=== PATIENT | male | born 1950 | race Caucasian/White ===

== ENCOUNTER 2018-12-01 20:06 | Observation (INO) | payer OTHER ==
[2018-12-01] MEDS ORDERED: Sodium Chloride 0.9% 1,000 ML IV ONE (20:32)
[2018-12-01] MEDS ORDERED: Nitroglycerin 2% Ointment Foilpak UD TOP STA (20:33)
--- NOTE | 2018-12-01 20:34 | C.PDOC ---
History Of Present Illness 68 year old male presents with intermittent chest pain since this morning described as a heaviness to the left chest area. Patient has a Hx of cardiac problems in the past with bypass and stents done in [place] years ago. Denies SOB, fever, or chills. Chief Complaint (Nursing): Chest Pain History Per: Patient History/Exam Limitations: no limitations Onset/Duration Of Symptoms: Days Current Symptoms Are (Timing): Still Present Quality: Other (Heaviness) Modifying Factors: None Exacerbating Factors: None Alleviating Factors: None Recent travel outside of the [place]: No Past Medical History Reviewed: Historical Data, Nursing Documentation, Vital Signs Vital Signs: Last Vital Signs Temp 98.2 F 12/01/18 20:24 Pulse 58 L 12/01/18 20:22 Resp 15 12/01/18 20:22 BP 191/78 H 12/01/18 20:22 Pulse Ox 97 12/01/18 20:22 - Medical History PMH: HTN, Hypercholesterolemia Family History: States: No Known Family Hx - Social History Hx Alcohol Use: No Hx Substance Use: No - Immunization History Hx Tetanus Toxoid Vaccination: No Hx Influenza Vaccination: No Hx Pneumococcal Vaccination: No Review Of Systems Constitutional: Negative for: Fever, Chills Cardiovascular: Positive for: Chest Pain Respiratory: Negative for: Cough, Shortness of Breath Gastrointestinal: Negative for: Nausea, Vomiting, Abdominal Pain Neurological: Negative for: Weakness, Numbness Physical Exam - Physical Exam Appears: Non-toxic, No Acute Distress Skin: Normal Color, Warm, Dry Head: Atraumatic, Normacephalic Eye(s): bilateral: Normal Inspection Oral Mucosa: Moist Neck: Normal, Supple Chest: Symmetrical, No Tenderness Cardiovascular: Rhythm Regular Respiratory: Normal Breath Sounds, No Rales, No Rhonchi, No Wheezing Gastrointestinal/Abdominal: Soft, No Tenderness Neurological/Psych: Oriented x3, Normal Speech ED Course And Treatment - Laboratory Results Result Diagrams: 12/01/18 20:58 12/01/18 20:58 ECG: Interpreted By Me, Viewed By Me ECG Rhythm: Sinus Bradycardia, Nonspecific Changes ECG Interpretation: No Acute Changes, Abnormal Interpretation Of ECG: Sinus bradycardia, non spc. t chnges, abnormal tracings Rate From EC O2 Sat by Pulse Oximetry: 97 (Room air) Pulse Ox Interpretation: Normal - Radiology CXR: Interpreted by Me, Viewed By Me CXR Interpretation: Yes: No Acute Disease, Other (increased bronchovascula rmarkings). No: Infiltrates, Pnemothorax Progress Note: EKG, blood work, and CXR ordered. Aspirin, IV fluids, and toradol administered. Nitro-bid applied. Repeat EKG shows no significant change. Disposition Discussed With : Fernando Quigley Doctor Will See Patient In The: Hospital Counseled Patient/Family Regarding: Diagnosis - Disposition Disposition: HOSPITALIZED Disposition Time: 21:51 Condition: STABLE - POA Present On Arrival: None - Clinical Impression Clinical Impression: Chest pain, Coronary artery disease, Hyperlipidemia, Hypertension - Scribe Statement The provider has reviewed the documentation as recorded by the Scribe Orlando Davila All medical record entries made by the Scribe were at my direction and personally dictated by me. I have reviewed the chart and agree that the record accurately reflects my personal performance of the history, physical exam, medical decision making, and the department course for this patient. I have also personally directed, reviewed, and agree with the discharge instructions and disposition.
--- NOTE | 2018-12-01 20:34 | C.PDOC ---
Chief Complaint (Nursing): Chest Pain Past Medical History Vital Signs: Last Vital Signs Temp 98.2 F 12/01/18 20:24 Pulse 58 L 12/01/18 20:22 Resp 15 12/01/18 20:22 BP 191/78 H 12/01/18 20:22 Pulse Ox 97 12/01/18 20:22 - Medical History PMH: HTN, Hypercholesterolemia - Social History Hx Alcohol Use: No Hx Substance Use: No - Immunization History Hx Tetanus Toxoid Vaccination: No Hx Influenza Vaccination: No Hx Pneumococcal Vaccination: No ED Course And Treatment O2 Sat by Pulse Oximetry: 97 Disposition - Disposition
[2018-12-01] MEDS ORDERED: Nitroglycerin 2% Ointment Foilpak UD TOP ONE (20:42)
[2018-12-01 21:03] LABS: BASO % 0.7 % (0.0-2.0); EOS # 0.2 K/uL (0.0-0.7); EOS % 3.6 % (0.0-4.0); HEMOGLOBIN 14.3 g/dL (12.0-18.0); LYMPH # 1.5 K/uL (1.0-4.3); LYMPH % 28.3 % (20.0-40.0); MEAN CELL VOLUME 88.6 fL (80.0-94.0); MEAN CORPUSCULAR HEMOGLOBIN 29.3 pg (27.0-31.0); MEAN CORPUSCULAR HGB CONC 33.1 g/dL (33.0-37.0); MEAN PLATELET VOLUME 8.4 fL (7.2-11.7); MONO # 0.6 K/uL (0.0-0.8); MONO % 10.1 % (0.0-10.0); NEUT # 3.1 K/uL (1.8-7.0); NEUT % 57.3 % (50.0-75.0); NRBC % 0.1 % (0.0-2.0); RBC 4.88 Mil/uL (4.40-5.90); RED CELL DISTRIBUTION WIDTH 12.8 % (11.5-14.5); WHITE BLOOD COUNT 5.5 K/uL (4.8-10.8)
[2018-12-01 21:17] LABS: ALB/GLOB RATIO 1.6 (1.0-2.1); ALBUMIN 4.4 g/dL (3.5-5.0); ALT/SGPT 26 U/L (21-72); AST/SGOT 29 U/L (17-59); BLOOD UREA NITROGEN 14 mg/dL (9-20); GFR NON-AFRICAN AMERICAN > 60
[2018-12-01 21:19] LABS: INR 1.1; PARTIAL THROMBOPLASTIN TIME 43 SECONDS (21-34); PROTHROMBIN TIME 12.3 SECONDS (9.7-12.2)
[2018-12-01 21:29] LABS: D DIMER < 200 ng/mlDDU (0-243)
[2018-12-01] MEDS: Enoxaparin 150 mg Syringe SC SCH (22:43)
[2018-12-01] MEDS ORDERED: Potassium Chloride 20 mEq ER Tab PO STA (22:47)
[2018-12-01] MEDS ORDERED: Enoxaparin 30 mg Syringe ONE (22:50)
[2018-12-01] MEDS ORDERED: Potassium Chloride 20 mEq ER Tab PO ONE (22:51)
[2018-12-02] MEDS: Nitroglycerin 2% Ointment Foilpak UD TOP SCH ×4 (00:55→18:00)
[2018-12-02 01:45] VITALS: RESP 20
[2018-12-02 06:42] LABS: CK-MB 1.36 ng/mL (0.0-3.38)
--- NOTE | 2018-12-02 09:14 | RAD ---
HISTORY: chest pain COMPARISON: None available. TECHNIQUE: Chest PA and lateral FINDINGS: LUNGS: Right hilar prominence. Left lower lobe atelectasis/pneumonia. Mild pulmonary venous congestion. Please note that chest x-ray has limited sensitivity for the detection of pulmonary masses. PLEURA: No significant pleural effusion identified. No definite pneumothorax . CARDIOVASCULAR: Heart size appears within normal limits. Aortic ectasia. OSSEOUS STRUCTURES: No acute osseous abnormality identified. VISUALIZED UPPER ABDOMEN: Unremarkable. OTHER FINDINGS: None. IMPRESSION: Right hilar prominence. Left lower lobe atelectasis/pneumonia. Mild pulmonary venous congestion.
[2018-12-02] MEDS ORDERED: Home Med 1 UNIT (Losartan/Hydrochlorothiazide [Losartan-Hctz 50-12.5 Mg Tab] 1 EACH) PO SCH (10:00)
[2018-12-02] MEDS: Potassium Chloride 20 mEq ER Tab PO SCH (10:02)
[2018-12-02] MEDS: Aspirin 325 mg EC Tablets PO SCH (10:03)
[2018-12-02] MEDS: Enoxaparin 150 mg Syringe SC SCH ×2 (10:05→21:45)
--- NOTE | 2018-12-02 10:32 | CP.PCM.HP ---
History of Present Illness - History of Present Illness History of Present Illness: 68 year old male presents with intermittent chest pain since this morning described as a heaviness to the left chest area. Patient has a Hx of cardiac problems in the past with bypass and stents done in [place] years ago FIRST SET OF CARDIAC TNI IS NEG NO ACUTE CHANGES IN EKG Present on Admission - Present on Admission Any Indicators Present on Admission: No Review of Systems - Review of Systems All systems: reviewed and no additional remarkable complaints except (CP) Past Patient History - Infectious Disease Hx of Infectious Diseases: None - Past Social History Smoking Status: Never Smoked - CARDIAC Hx Hypercholesterolemia: Yes Hx Hypertension: Yes - PSYCHIATRIC Hx Substance Use: No - SURGICAL HISTORY Hx Surgeries: Yes Hx Angioplasty: Yes (2 stents) - ANESTHESIA Hx Anesthesia: Yes Meds Allergies/Adverse Reactions: Allergies Allergy/AdvReac Type Severity Reaction Status Date / Time No Known Allergies Allergy Verified 12/01/18 20:21 Physical Exam - Head Exam Head Exam: ATRAUMATIC, NORMAL INSPECTION, NORMOCEPHALIC - Eye Exam Eye Exam: EOMI, Normal appearance, PERRL - ENT Exam ENT Exam: Mucous Membranes Moist, Normal Exam - Neck Exam Neck exam: Positive for: Normal Inspection - Respiratory Exam Respiratory Exam: Clear to Auscultation Bilateral, NORMAL BREATHING PATTERN - Cardiovascular Exam Cardiovascular Exam: REGULAR RHYTHM - GI/Abdominal Exam GI & Abdominal Exam: Normal Bowel Sounds, Soft. absent: Tenderness - Extremities Exam Extremities exam: Positive for: normal inspection - Back Exam Back exam: NORMAL INSPECTION - Neurological Exam Neurological exam: Alert, CN II-XII Intact, Normal Gait, Oriented x3, Reflexes Normal Results - Vital Signs Recent Vital Signs: Last Vital Signs Temp 97.5 F L 12/02/18 07:00 Pulse 54 L 12/02/18 08:31 Resp 20 12/02/18 07:00 BP 152/54 H 12/02/18 10:06 Pulse Ox 98 12/02/18 08:31 - Labs Result Diagrams: 12/01/18 20:58 12/01/18 20:58 Labs: Laboratory Results - last 24 hr 12/01/18 12/01/18 12/01/18 20:58 20:58 20:58 WBC 5.5 RBC 4.88 Hgb 14.3 Hct 43.3 MCV 88.6 MCH 29.3 MCHC 33.1 RDW 12.8 Plt Count 177 MPV 8.4 Neut % (Auto) 57.3 Lymph % (Auto) 28.3 [place] % (Auto) 10.1 H Eos % (Auto) 3.6 Baso % (Auto) 0.7 Neut # (Auto) 3.1 Lymph # (Auto) 1.5 [place] # (Auto) 0.6 Eos # (Auto) 0.2 Baso # (Auto) 0.0 PT 12.3 H INR 1.1 APTT 43 H D-Dimer, Quantitative < 200 Sodium 132 Potassium 3.5 L Chloride 97 L Carbon Dioxide 26 Anion Gap 13 BUN 14 Creatinine 0.8 Est GFR ( Amer) > 60 Est GFR (Non-Af Amer) > 60 Random Glucose 105 Calcium 9.0 Total Bilirubin 1.0 AST 29 ALT 26 Alkaline Phosphatase 42 Total Creatine Kinase CK-MB (Mass) Troponin I < 0.0120 Total Protein 7.3 Albumin 4.4 Globulin 2.9 Albumin/Globulin Ratio 1.6 12/02/18 06:02 WBC RBC Hgb Hct MCV MCH MCHC RDW Plt Count MPV Neut % (Auto) Lymph % (Auto) [place] % (Auto) Eos % (Auto) Baso % (Auto) Neut # (Auto) Lymph # (Auto) [place] # (Auto) Eos # (Auto) Baso # (Auto) PT INR APTT D-Dimer, Quantitative Sodium Potassium Chloride Carbon Dioxide Anion Gap BUN Creatinine Est GFR ( Amer) Est GFR (Non-Af Amer) Random Glucose Calcium Total Bilirubin AST ALT Alkaline Phosphatase Total Creatine Kinase 107 CK-MB (Mass) 1.36 Troponin I < 0.0120 Total Protein Albumin Globulin Albumin/Globulin Ratio Assessment & Plan (1) Chest pain Status: Acute (2) Coronary artery disease Status: Acute (3) Hyperlipidemia Status: Acute (4) Hypertension Status: Acute
[2018-12-02 14:30] LABS: CK-MB 1.28 ng/mL (0.0-3.38)
[2018-12-03] MEDS: Nitroglycerin 2% Ointment Foilpak UD TOP SCH ×3 (00:26→11:31)
--- NOTE | 2018-12-03 08:02 | CARD ---
APPROVED REPORT Date of service: 12/01/2018 EKG Measurement Heart [id number] <Conclusion> Sinus bradycardia Left axis deviation Inferior infarct, age undetermined Abnormal ECG
[2018-12-03 08:08] LABS: BLOOD UREA NITROGEN 15 mg/dL (9-20); CALCIUM 8.6 mg/dl (8.6-10.4); GFR NON-AFRICAN AMERICAN > 60
--- NOTE | 2018-12-03 09:04 | CARD ---
APPROVED REPORT Date of service: 12/02/2018 EXAM: Two-dimensional and M-mode echocardiogram with Doppler and color Doppler. Other Information Quality : TDSRhythm : INDICATION Cardiac Disease: CAD Chest Pain RISK FACTORS Hypertension Hyperlipidemia 2D DIMENSIONS IVSd1.0 (0.7-1.1cm)LVDd4.7 (3.9-5.9cm) PWd0.8 (0.7-1.1cm)LA [id number] (18-58mL) LVDs2.5 (2.5-4.0cm)FS (%) 46.5 % LVEF (%)77.8 (>50%)LVEF (Concepcion's)61.09 % M-Mode DIMENSIONS Left Atrium (MM)3.93 (2.5-4.0cm)IVSd0.80 (0.7-1.1cm) Aortic Root3.31 (2.2-3.7cm)LVDd4.98 (4.0-5.6cm) Aortic Cusp Exc.1.57 (1.5-2.0cm)PWd0.58 (0.7-1.1cm) FS (%) 45 %LVDs2.75 (2.0-3.8cm) LVEF (%)76 (>50%) Mitral Valve MV E Jpjgqjfd52.2cm/sMV A Kbreowwx39.7cm/sE/A ratio1.0 TDI Lateral E' Peak V5.00cm/sMedial E' Peak V4.80cm/sE/Lateral E'18.2 E/Medial E'19.0 Tricuspid Valve TR Peak [id number]/sTR Peak Gr.[id number] <Conclusion> Suboptimal study Left ventricle: thickness: normal; size: normal; overall ejection fraction: 65%: diastolic filling pressures: elevated Mitral valve: annulus: normal: leaflets: normal: excursion: normal; no significant trans-mitral gradient: no significant incompetence: left atrium: normal Aortic valve: leaflets: normal: excursion: normal; no significant trans-aortic gradient: No significant incompetence: aortic root: normal Right sided Structures: Pulmonary valve: normal; no significant incompetence; Tricuspid valve: normal; no significant incompetence: Intra-cardiac hemodynamics: pulmonary systolic pressures: 32 mmHg; central venous pressures: normal No pericardial effusion
[2018-12-03 09:08] VITALS: BP 134/79; TEMP 97.4; O2SAT 96
[2018-12-03] MEDS: Aspirin 325 mg EC Tablets PO SCH (09:52)
[2018-12-03] MEDS: Potassium Chloride 20 mEq ER Tab PO SCH (09:52)
[2018-12-03] MEDS: Enoxaparin 150 mg Syringe SC SCH (09:53)
--- NOTE | 2018-12-03 12:11 | CP.PCM.PN ---
Subjective - Date & Time of Evaluation Date of Evaluation: 12/03/18 Time of Evaluation: 12:10 - Subjective Subjective: PATIENT SEEN AND EXAMINED AT THE BEDSIDE Objective - Vital Signs/Intake and Output Vital Signs (last 24 hours): Temp Pulse Resp BP Pulse Ox 97.4 F L 60 20 134/79 96 12/03/18 09:06 12/03/18 09:06 12/03/18 09:06 12/03/18 09:52 12/03/18 09:06 - Medications Medications: Current Medications Aspirin (Ecotrin) 325 mg PO DAILY [facility] Last Admin: 12/03/18 09:52 Dose: 325 mg Enoxaparin Sodium (Lovenox) 30 mg SC Q12 [facility] Last Admin: 12/03/18 09:53 Dose: 30 mg Hydrochlorothiazide (Microzide) 12.5 mg PO DAILY [facility] Last Admin: 12/03/18 09:52 Dose: 12.5 mg Losartan Potassium (Cozaar) 50 mg PO DAILY [facility] Last Admin: 12/03/18 09:52 Dose: 50 mg Metoprolol Tartrate (Lopressor) 25 mg PO BID [facility] Last Admin: 12/03/18 09:52 Dose: 25 mg Nitroglycerin (Nitro-Bid 2% Oint) 0.5 ea TOP Q6 [facility] Last Admin: 12/03/18 11:31 Dose: Not Given Potassium Chloride (K-Dur 20 Meq Er Tab) 20 meq PO DAILY [facility] Stop: 12/04/18 10:01 Last Admin: 12/03/18 09:52 Dose: 20 meq Rosuvastatin Calcium (Crestor) 20 mg PO HS [facility] Last Admin: 12/02/18 21:44 Dose: 20 mg - Labs Labs: 12/01/18 20:58 12/03/18 07:24 PT 12.3 SECONDS (9.7-12.2) H 12/01/18 20:58 INR 1.1 12/01/18 20:58 APTT 43 SECONDS (21-34) H 12/01/18 20:58 Assessment and Plan - Assessment and Plan (Free Text) Assessment: FOLLOW UP WITH DR MEDEROS IN HIS OFFICE CONTINUE HOME MEDICATION ACTIVITY TOLERATED CALL DR MEDEROS OF GO TO THE EMERGENCY ROOM IF SYMPTOM RETRUN OR WORSENING
[2018-12-03 12:57] VITALS: PULSE 64
--- NOTE | 2018-12-03 13:06 | CP.PCM.DIS ---
Provider - Provider Date of Admission: 12/01/18 21:53 Attending physician: Fernando Quigley MD Time Spent in preparation of Discharge (in minutes): 35 Diagnosis - Discharge Diagnosis (1) Chest pain Status: Acute (2) Coronary artery disease Status: Acute (3) Hyperlipidemia Status: Acute (4) Hypertension Status: Acute Hospital Course - Lab Results Lab Results: Most Recent Lab Values WBC 5.5 K/uL (4.8-10.8) 12/01/18 20:58 RBC 4.88 Mil/uL (4.40-5.90) 12/01/18 20:58 Hgb 14.3 g/dL (12.0-18.0) 12/01/18 20:58 Hct 43.3 % (35.0-51.0) 12/01/18 20:58 MCV 88.6 fL (80.0-94.0) 12/01/18 20:58 MCH 29.3 pg (27.0-31.0) 12/01/18 20:58 MCHC 33.1 g/dL (33.0-37.0) 12/01/18 20:58 RDW 12.8 % (11.5-14.5) 12/01/18 20:58 Plt Count 177 K/uL (130-400) 12/01/18 20:58 MPV 8.4 fL (7.2-11.7) 12/01/18 20:58 Neut % (Auto) 57.3 % (50.0-75.0) 12/01/18 20:58 Lymph % (Auto) 28.3 % (20.0-40.0) 12/01/18 20:58 [place] % (Auto) 10.1 % (0.0-10.0) H 12/01/18 20:58 Eos % (Auto) 3.6 % (0.0-4.0) 12/01/18 20:58 Baso % (Auto) 0.7 % (0.0-2.0) 12/01/18 20:58 Neut # (Auto) 3.1 K/uL (1.8-7.0) 12/01/18 20:58 Lymph # (Auto) 1.5 K/uL (1.0-4.3) 12/01/18 20:58 [place] # (Auto) 0.6 K/uL (0.0-0.8) 12/01/18 20:58 Eos # (Auto) 0.2 K/uL (0.0-0.7) 12/01/18 20:58 Baso # (Auto) 0.0 K/uL (0.0-0.2) 12/01/18 20:58 PT 12.3 SECONDS (9.7-12.2) H 12/01/18 20:58 INR 1.1 12/01/18 20:58 APTT 43 SECONDS (21-34) H 12/01/18 20:58 D-Dimer, Quantitative < 200 ng/mlDDU (0-243) 12/01/18 20:58 Sodium 134 mmol/L (132-148) 12/03/18 07:24 Potassium 3.9 mmol/L (3.6-5.2) 12/03/18 07:24 Chloride 100 mmol/L (98-107) 12/03/18 07:24 Carbon Dioxide 25 mmol/L (22-30) 12/03/18 07:24 Anion Gap 12 (10-20) 12/03/18 07:24 BUN 15 mg/dL (9-20) 12/03/18 07:24 Creatinine 0.9 mg/dL (0.8-1.5) 12/03/18 07:24 Est GFR ( Amer) > 60 12/03/18 07:24 Est GFR (Non-Af Amer) > 60 12/03/18 07:24 Random Glucose 96 mg/dL (75-110) 12/03/18 07:24 Calcium 8.6 mg/dl (8.6-10.4) 12/03/18 07:24 Total Bilirubin 1.0 mg/dL (0.2-1.3) 12/01/18 20:58 AST 29 U/L (17-59) 12/01/18 20:58 ALT 26 U/L (21-72) 12/01/18 20:58 Alkaline Phosphatase 42 U/L (38-126) 12/01/18 20:58 Total Creatine Kinase 90 U/L (55-170) 12/02/18 20:17 CK-MB (Mass) 1.10 ng/mL (0.0-3.38) 12/02/18 20:17 Troponin I < 0.0120 ng/mL (0.00-0.120) 12/02/18 20:17 Total Protein 7.3 g/dL (6.3-8.3) 12/01/18 20:58 Albumin 4.4 g/dL (3.5-5.0) 12/01/18 20:58 Globulin 2.9 gm/dL (2.2-3.9) 12/01/18 20:58 Albumin/Globulin Ratio 1.6 (1.0-2.1) 12/01/18 20:58 - Hospital Course Hospital Course: 68 year old male presents with intermittent chest pain since this morning described as a heaviness to the left chest area. Patient has a Hx of cardiac problems in the past with bypass and stents done in [place] years ago FIRST SET OF CARDIAC TNI IS NEG NO ACUTE CHANGES IN EKG 3 SETS TNI WERE NEG ECHO NORMAL LV EF . LV FILLING OR INDETERMINATE PT HAD NO FURTHER PAIN PT D/C ON HOME MEDS ADV TO SEE HIS RADIATION CONTROL SPECIALIST OR MY OFFICE FOR NUCLEAR STRESS TEST AND NOT REGULAR STRESS TEST Discharge Exam - Head Exam Head Exam: ATRAUMATIC, NORMAL INSPECTION, NORMOCEPHALIC Discharge Plan - Follow Up Plan Condition: STABLE Disposition: HOME/ ROUTINE Instructions: Heart Healthy Diet, Chest Pain (DC), Coronary Heart Disease (DC), High Cholesterol (DC), Hypertension (DC) Additional Instructions: FOLLOW UP WITH DR QUIGLEY IN HIS OFFICE CONTINUE HOME MEDICATION ACTIVITY TOLERATED CALL DR QUIGLEY OF GO TO THE EMERGENCY ROOM IF SYMPTOM RETRUN OR WORSENING Referrals: Fernando Quigley MD [Staff Provider] -
--- NOTE | 2018-12-05 12:46 | CARD ---
APPROVED REPORT Date of service: 12/02/2018 EKG Measurement Heart [id number] HI [id number] <Conclusion> Normal sinus rhythm Possible Inferior infarct, age undetermined Abnormal ECG
--- NOTE | 2018-12-05 18:30 | CARD ---
APPROVED REPORT Date of service: 12/01/2018 EKG Measurement Heart [id number] ID [id number] <Conclusion> Sinus bradycardia Nonspecific T wave abnormality Abnormal ECG
== END 2018-12-03 13:03 | disposition home or self-care (01) ==
LOC: C.ER 20:06 → C.9E 21:53 → C.6T 22:35
PROVIDERS: ADMIT Internal Medicine Cardiovascular Disease; ATTEND Internal Medicine Cardiovascular Disease
DX: R07.9 Chest pain, unspecified (principal); I25.10 Atherosclerotic heart disease of native coronary artery without angina pectoris; E78.5 Hyperlipidemia, unspecified; E78.00 Pure hypercholesterolemia, unspecified; I10 Essential (primary) hypertension
CPT/HCPCS: 36415; 71046; 80048; 80053; 84484; 85025; 85378; 85610; 85730; 93005; 93306; 96372; 96374; 99285; G0378; J1650; J1885; J7030